=== PATIENT | female | born 1950 | race Caucasian/White ===

== ENCOUNTER 2016-08-03 11:45 | Inpatient (IN) | payer MEDICARE ==
--- NOTE | ~2016-08-03 | HP ---
History And Physical [id number] [place]. [address] NAME: JUVE PEÑA : 48 STATUS : ADM IN PAT#: [id number] AGE: 65 ADM/REG DATE : 08/03/16 MR#: [id number] REPORT SERV DATE: 08/03/16 DICTATED BY: MARYCRUZ HUDSON DATE: 08/03/16 REPORT STATUS : Draft TRANSCRIBED BY: MODL DATE: 08/03/16 DATE OF ADMISSION: 08/03/2016 INDICATION: Tachycardia. HISTORY: The patient is a 65-year-old white female, who has had some stresses at home. Her father recently with congestive heart failure. Her family states that she is quite active and insistent on maintaining her home in a reasonable fashion. She has been going to work, coming home, and doing more work at home, but over the past two weeks, she has noted increasing palpitations, exertional dyspnea, and fatigue. Not able to get done the things that she usually has been able to do. She has no prior history of coronary artery disease and heart failure. She does have a history of hypertension. CURRENT HOME MEDICATIONS: Ibuprofen 600 per day p.r.n., levothyroxine 150 per day, and a blood pressure medication as of yet unidentified. ALLERGIES/INTOLERANCES: None known. SOCIAL HISTORY: Negative for tobacco or alcohol use. FAMILY HISTORY: She has 1 brother who has had bypass surgery and her father had a history of bypass surgery. There is a history of hypertension. No history of diabetes. PHYSICAL EXAMINATION: GENERAL: A 65-year-old white female, pleasant, in no acute distress. VITAL SIGNS: Blood pressure on admission 126/82, pulse 155 and regular, respirations 21 after IV Cardizem drip, pulse rate intermittently between 70 and 130. SKIN: No xanthelasmas. HEENT: She is normocephalic. There is no pallor. Sclerae white. NECK: JVD is not elevated. CHEST: No crackles. CARDIAC: S1 normal. S2 physiologic. ABDOMEN: Soft. EXTREMITIES: Without edema. NEUROLOGIC: No focal deficits. MUSCULOSKELETAL: No kyphosis. LABORATORY DATA: BUN 21, creatinine 1, and potassium 3.4. TSH 9.9. White count 8.9, hemoglobin 12.9. BNP 775. IMPRESSION: Likely ectopic atrial tachycardia with possible rate related decrease in left ventricular function. She is responding reasonably well to IV Cardizem. We will plan echocardiogram in the morning with further recommendations. Pending outcome of studies. We will plan to replace her potassium. History And Physical [address] [place]. [address] NAME: JUVE PEÑA : 48 STATUS : ADM IN PAT#: [id number] AGE: 65 ADM/REG DATE : 08/03/16 MR#: [id number] REPORT SERV DATE: 08/03/16 DICTATED BY: MARYCRUZ HUDSON DATE: 08/03/16 REPORT STATUS : Draft TRANSCRIBED BY: ELISEO DATE: 08/03/16 DILSHAD/ELISEO Marycruz Hudson M.D. / [id number] CC: Marycruz Hudson M.D. , [facility]
--- NOTE | ~2016-08-03 | DS ---
Discharge Summary [facility] [address] [place]. [address] NAME: JUVE PEÑA : 48 STATUS : DIS IN PAT#: [id number] AGE: 65 ADM/REG DATE : 08/03/16 MR#: [id number] REPORT SERV DATE: 08/14/16 DICTATED BY: MARYCRUZ SPARKS DATE: 08/13/16 REPORT STATUS : Draft TRANSCRIBED BY: ELISEO DATE: 08/13/16 Data Collection from hospitalization DISCHARGE DIAGNOSIS(ES): ( ) ( ) CONSULTATIONS: None. PROCEDURES PERFORMED: 1. Electrophysiology study with radiofrequency ablation, 08/05/2016. 2. Echocardiogram, 08/06/2016. MEDICATIONS: Levothyroxine sodium 150 mcg daily, Motrin 600 mg daily as needed, Micardis 80 mg daily, hydrochlorothiazide 12.5 mg daily. CONDITION AT DISCHARGE: Upon discharge, she did appear to be doing well and had no complaints. DISPOSITION: She was discharged home to continue a 2 g sodium diet with activity as discussed. She was to follow up with me in the office on 08/29/2016 and follow up with her primary care physician as needed. HOSPITAL COURSE: This 65-year-old female had some stresses at home. Her father had recently with congestive heart failure. Her family stated that she was quite active and insistent on maintaining her home in a reasonable fashion. She had been going to work, coming home, and doing more work at home, but over the past two weeks, she noted increasing palpitations, exertional dyspnea, and fatigue. She was not able to do the things that she usually has been able to do. She had no prior history of coronary artery disease and heart failure. She did however have a history of hypertension. She was admitted for further evaluation and treatment. Upon admission to the hospital, she had been placed on a low- sodium diet, to be n.p.o. after midnight. She was begun on oxygen at 2 L by nasal cannula with bronchodilators per protocol. She had been placed on Cardizem drip at 15 mg/hour, Zofran 4 to 8 mg IV every four hours as needed, as well as Eliquis 5 mg every 12 hours orally. Following the day of admission, she had dyspnea with walking in the room, which did resolve. She had no complaints of chest pain. She was afebrile and her vital signs were stable. Cardizem drip was discontinued. Electrophysiology study and ablation were discussed with the patient to include the risks and benefits, and she was agreeable to proceed. On 08/05/2016, she had no further episodes of SVT. She was afebrile and her vital signs were stable. She did undergo the above ablation. She did tolerate this well and was transferred to the recovery room. On 08/06/2016, she did continue to do well and had no new complaints. She did undergo the above echocardiogram. She did remain in stable condition and was then discharged with the above instructions. Information collected by: Maite SpearIMona. I submit the above information as my discharge summary. Discharge Summary [address] [address] NAME: JUVE PEÑA : 48 STATUS : DIS IN PAT#: [id number] AGE: 65 ADM/REG DATE : 08/03/16 MR#: [id number] REPORT SERV DATE: 08/14/16 DICTATED BY: MARYCRUZ SPARKS DATE: 08/13/16 REPORT STATUS : Draft TRANSCRIBED BY: ELISEO DATE: 08/13/16 ADELFO/ELISEO Marycruz Sparks M.D. / [id number] CC: Ora Barrera M.D.
[2016-08-03 12:38] LABS: BASOPHILS 0.7 %; BASOPHILS ABSOLUTE 0.06 10/3/uL (0.0-0.16); EOSINOPHILS 1.8 %; EOSINOPHILS ABSOLUTE 0.16 10/3/uL (0.0-0.53); ER CBC TAT 0 Hrs 03 Mins; HEMATOCRIT 37.8 % (36.0-48.0); HEMOGLOBIN 12.9 g/dL (12.0-16.0); IMMATURE GRANULOCYTES 0.3 %; IMMATURE GRANULOCYTES ABSOLUTE 0.03 10/3/uL (0.0-0.11); LYMPHOCYTES 19.7 %; LYMPHOCYTES ABSOLUTE 1.75 10/3/uL (0.67-4.30); MEAN CORPUS HGB CONC 34.1 g/dL (32.0-36.0); MEAN CORPUSCULAR HEMOGLOB 30.4 pg (26.0-34.0); MEAN CORPUSCULAR VOLUME 88.9 fL (80-100); MEAN PLATELET VOLUME 9.8 fL (9.2-13.0); MONOCYTES 6.6 %; MONOCYTES ABSOLUTE 0.59 10/3/uL (0.21-1.20); NEUTROPHILS 70.9 %; PLATELET COUNT 228 10/3/uL (150-400); RBC DISTRIBUTION WIDTH 13.3 % (12.0-16.0); RED CELL COUNT 4.25 10/6/uL (4.0-5.6); WHITE BLOOD CELLS 8.9 10/3/uL (4.5-10.5)
[2016-08-03 12:39] LABS: MANUAL DIFF NO %
[2016-08-03 12:48] LABS: PARTIAL THROMBO TIME 27.5 SEC (22.5-37.2); PROTIME (NOT ORD) 13.5 SEC (12.0-14.5)
[2016-08-03 12:49] LABS: ASCORBIC ACID (UR NOT ORDER) NEG (NEG); BILIRUBIN, URINE NEGATIVE (NEG); ER URINALYSIS TAT 0 Hrs 00 Mins; KETONE, URINE NEGATIVE (NEG); LEUKOCYTE ESTERASE(NOT OR NEG (NEG); NITRITE (URINE) NEG (NEG); WBC (NOT ORDERED) (RFLEX) 2 (0-5)
[2016-08-03 13:00] LABS: BUN (BLOOD UREA NITROGEN) 21 MG/DL (6-23); CALCIUM, SERUM 8.8 MG/DL (8.5-10.4); CHEST PAIN PROFILE TAT 0 Hrs 25 Mins; CHLORIDE, SERUM 104 MMOL/L (96-112); CO2 (CARBON DIOXIDE) 28 MMOL/L (24-34); GFR AFRICAN AMERICAN 68 ML/MIN (>=60); GFR NON AFRICAN AMERICAN 59 ML/MIN (>=60); GLUCOSE, SERUM 124 MG/DL (60-99); POTASSIUM, SERUM 3.4 MMOL/L (3.5-5.3); SODIUM, SERUM 139 MMOL/L (135-148); TROPONIN I 0.03 NG/ML (<0.05)
[2016-08-03] MEDS ORDERED: IBU600 PO (14:27)
[2016-08-03] MEDS ORDERED: LEVOTHYROXIN150 MCG PO (14:27)
[2016-08-03] MEDS ORDERED: MICARDIS80 PO (14:28)
[2016-08-04] MEDS ORDERED: HYDROCHLOROT12.5 MG PO (10:12)
[2016-08-04 14:01] LABS: BUN (BLOOD UREA NITROGEN) 14 MG/DL (6-23); CALCIUM, SERUM 8.7 MG/DL (8.5-10.4); CHLORIDE, SERUM 105 MMOL/L (96-112); CO2 (CARBON DIOXIDE) 31 MMOL/L (24-34); CREATININE 0.82 MG/DL (0.55-1.02); FOLATE 18.6 NG/ML (>5.2); GFR AFRICAN AMERICAN 86 ML/MIN (>=60); GFR NON AFRICAN AMERICAN 75 ML/MIN (>=60); GLUCOSE, SERUM 114 MG/DL (60-99); POTASSIUM, SERUM 3.8 MMOL/L (3.5-5.3); SODIUM, SERUM 142 MMOL/L (135-148); T4 (THYROXINE) TOTAL 10.4 MCG/DL (4.5-12.0)
[2016-08-05 05:57] LABS: BASOPHILS 0.9 %; BASOPHILS ABSOLUTE 0.06 10/3/uL (0.0-0.16); EOSINOPHILS 6.2 %; EOSINOPHILS ABSOLUTE 0.41 10/3/uL (0.0-0.53); HEMATOCRIT 37.6 % (36.0-48.0); HEMOGLOBIN 12.5 g/dL (12.0-16.0); IMMATURE GRANULOCYTES 0.2 %; IMMATURE GRANULOCYTES ABSOLUTE 0.01 10/3/uL (0.0-0.11); LYMPHOCYTES ABSOLUTE 2.17 10/3/uL (0.67-4.30); MEAN CORPUS HGB CONC 33.2 g/dL (32.0-36.0); MEAN CORPUSCULAR HEMOGLOB 30.3 pg (26.0-34.0); MEAN PLATELET VOLUME 9.4 fL (9.2-13.0); MONOCYTES 6.1 %; NEUTROPHILS 53.6 %; NEUTROPHILS ABSOLUTE 3.52 10/3/uL (2.02-8.40); PLATELET COUNT 249 10/3/uL (150-400); RED CELL COUNT 4.13 10/6/uL (4.0-5.6); WHITE BLOOD CELLS 6.6 10/3/uL (4.5-10.5)
[2016-08-05 06:00] LABS: MANUAL DIFF NO %
[2016-08-05 06:04] LABS: BUN (BLOOD UREA NITROGEN) 19 MG/DL (6-23); CALCIUM, SERUM 8.6 MG/DL (8.5-10.4); CHLORIDE, SERUM 102 MMOL/L (96-112); CO2 (CARBON DIOXIDE) 30 MMOL/L (24-34); CREATININE 0.81 MG/DL (0.55-1.02); GFR AFRICAN AMERICAN 88 ML/MIN (>=60); GFR NON AFRICAN AMERICAN 76 ML/MIN (>=60); GLUCOSE, SERUM 101 MG/DL (60-99); POTASSIUM, SERUM 3.7 MMOL/L (3.5-5.3); SODIUM, SERUM 138 MMOL/L (135-148)
== END 2016-08-06 11:40 | disposition home or self-care (01) | DRG 274 ==
LOC: ER 11:45 → ER/OF 15:24 → 6NO 15:52
PROVIDERS: Emergency Medicine; Internal Medicine Clinical Cardiac Electrophysiology
PROC: 4A023FZ Measurement of Cardiac Rhythm, Percutaneous Approach (ICD-10-PCS; principal; 2016-08-05)
PROC: 02583ZZ Destruction of Conduction Mechanism, Percutaneous Approach (ICD-10-PCS; 2016-08-05)
PROC: 4A0234Z Measurement of Cardiac Electrical Activity, Percutaneous Approach (ICD-10-PCS; 2016-08-05)
PROC: 02K83ZZ Map Conduction Mechanism, Percutaneous Approach (ICD-10-PCS; 2016-08-05)
DX: I47.1 Supraventricular tachycardia (principal); E87.70 Fluid overload, unspecified; I10 Essential (primary) hypertension; E87.6 Hypokalemia; E03.9 Hypothyroidism, unspecified; Z82.49 Family history of ischemic heart disease and other diseases of the circulatory system
CPT/HCPCS: 71010; 80048; 81001; 82746; 83735; 83880; 84436; 84443; 84484; 85025; 85347; 85610; 85730; 93005; 93306; 93613; 93621; 93623; 93653; 96374; 96375; 99285; A9270-GY; C1732; C1759; C1781; C1894; J0153; J1170; J2250; J2370; J2720; J3010; Q9967